=== PATIENT | female | born 1995 | race Caucasian/White ===

== ENCOUNTER 2020-05-19 16:16 | Emergency (ER) | payer BC, SELFPAY ==
[2020-05-19 16:26] VITALS: BP 137/75; PULSE 74; RESP 18; TEMP 36.6; O2SAT 100; BMI 19.5
[2020-05-19] MEDS: Diphth,Pertus(ACell),Tet Adult 0.5 ML SYRINGE IM (16:44)
[2020-05-19] MEDS: Lidocaine HCl 2 % MPF 5 ML VIAL SUBCUT (16:44)
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
[2020-05-19 18:15] VITALS: BP 131/77; PULSE 85; RESP 28; TEMP 37.5; O2SAT 100
--- NOTE | 2020-05-19 18:58 | MHC.CARE ---
CARE Team meets with pt, a 25 year old engaged white Salvadorean speaking female, who presents to the ED today via ambulance second to significant cutting to her lower leg, which required 5 stitches. Client is insightful help seeking, and future oriented. She denies SI and denies that self harm today was suicidal in nature. She reported a long hx of self harm which started in 8th grade. She details her experiences with numerous mental health professionals, and reports that these experiences were minimally positive, but she is open to referral for therapy at this time. Pt does not currently meet criteria for IPLOC, so the following safety plan and set of recommendations were made to the patient. Patient is provided a copy of this plan, and is provided with several handouts. Pt is agreeable to return to ED or reach out to [facility] crisis as needed. CARE Team recommends PHP and outpatient therapy and psychiatry, which pt is receptive to. Treatment Recommendations: Please call the [facility] Program in the [phone], opt 2 [place] [facility] is being offered through Telehealth only PHP programs provide group therapy and access to psychiatry quickly. [facility] Program may be offered in person, please call tomorrow morning [phone] You can self refer to [facility] programs, please call in the morning with insurance info handy To find a therapist in private practice: Use the psychology today website ?find a therapist? feature to search for a therapist in private practice. [email or web address] You can also call the phone number on your insurance card for behavioral health, and [facility] can provide you with a list of private therapists in your area. When you find a therapist, be sure to assert yourself, let them know you have had experiences in the past that cause mistrust, and let them know exactly what you are looking for, what works and does not work for you. Safety Recommendations: If you are at home and in need of immediate intervention from crisis services, but are not in any immediate danger, call [facility] crisis services [phone]. [facility] is there 24 hrs everyday, and can provide you with support, crisis assessment and can help you decide what to do next to address your mental health If you feel that you need inpatient psychiatric hospitalization, need medical attention, or are in immediate danger (feeling suicidal, for example) please come to [facility] ED. When you do start therapy, speak with your therapist about your safety plan and what kind of support is helpful for you when you are cutting, or in a mental health crisis. If you need medical attention due to self harm, such as cutting, please come to the ED. Other Recommendations: Establish a bedtime routine, and try your best not to over sleep. Make your bed a space where only sleeping happens, and set up a separate comfy space in your house where you can relax, but not sleep. Use an aniya in your smart phone to set up a routine for when you fall asleep, wake up, and how long you sleep. Please refer to DBT sleep hygiene for additional information If you feel that your hallucinations are causing you distress, causing you to lose sleep, or resulting in increased urges to harm yourself or others, please come to the ED for crisis assessment. Focus on healthy communication with your partner. Utilize mindfulness, try your best to both validate/nuture your partner, while at the same time asserting yourself and making sure that you are caring for/addressing your trauma Refer to the assertiveness bill of rights
== END 2020-05-19 19:10 | disposition home or self-care (01) ==
PROVIDERS: Emergency Provider Emergency Medicine Emergency Medical Services; PCP Nurse Practitioner Family
DX: S81.811A Laceration without foreign body, right lower leg, initial encounter (principal); M79.661 Pain in right lower leg; X78.1XXA Intentional self-harm by knife, initial encounter; Y93.9 Activity, unspecified; Y92.9 Unspecified place or not applicable; Y99.9 Unspecified external cause status; Z63.0 Problems in relationship with spouse or partner
CPT/HCPCS: 12002; 90471; 90715; 96372; 99284